=== PATIENT | female | born 1985 | race Caucasian/White ===

== ENCOUNTER 2021-11-05 20:08 | Emergency (ER) | payer OTHER, BC | END 2021-11-05 22:15 | disposition home or self-care (01) | LOC: KA.ED 20:08 | DX: S62.323A Displaced fracture of shaft of third metacarpal bone, left hand, initial encounter for closed fracture (principal); W22.09XA Striking against other stationary object, initial encounter | CPT/HCPCS: 29125; 73130-LT; 99283; 99283-25 ==